=== PATIENT | female | born 1965 | race Caucasian/White ===

== ENCOUNTER 2020-07-13 21:12 | Emergency (ER) | payer BC ==
[2020-07-13] MEDS ORDERED: MORPHINE SULFATE 2 MG/ML SYRINGE IM STA (21:23)
--- NOTE | 2020-07-13 21:48 | XR ---
EXAMINATION TYPE: XR ankle complete RT DATE OF EXAM: 07/13/2020 COMPARISON: NONE HISTORY: Injury. Pain. TECHNIQUE: 3 views FINDINGS: There is posterior dislocation of the talus. There is oblique fracture distal fibula and tr ansverse fracture through the medial malleolus. There is probably a chip fracture of the posterior ma lleolus. IMPRESSION: Posterior fracture dislocation of the right ankle.
[2020-07-13] MEDS ORDERED: ETOMIDATE 2 MG/ML 10 ML VIAL IVP STA (22:09)
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
--- NOTE | 2020-07-13 23:29 | XR ---
EXAMINATION TYPE: XR ankle complete RT DATE OF EXAM: 07/13/2020 COMPARISON: Today HISTORY: Post reduction TECHNIQUE: 2 views FINDINGS: There is anatomic reduction of the talus. There is bimalleolar fracture of the ankle. There is 5 mm lateral displacement of the talus on the frontal view. There is probably a 2 x 1 cm chip fra cture of the posterior malleolus also. IMPRESSION: Satisfactory reduction of the posterior trimalleolar fracture dislocation.
[2020-07-13 23:37] VITALS: RESP 16
[2020-07-13 23:49] VITALS: PULSE 97
[2020-07-14] MEDS ORDERED: ACET/COD 300 MG/30 MG STARTER PACK 6 TAB BTL PO STA (00:11)
[2020-07-14 00:48] VITALS: BP 122/76; TEMP 97.8
== END 2020-07-14 00:20 | disposition home or self-care (01) ==
LOC: EC 21:12
DX: S82.841A Displaced bimalleolar fracture of right lower leg, initial encounter for closed fracture (principal); S82.401A Unspecified fracture of shaft of right fibula, initial encounter for closed fracture; Z88.0 Allergy status to penicillin; V87.8XXA Person injured in other specified noncollision transport accidents involving motor vehicle (traffic), initial encounter; Y93.55 Activity, bike riding; Y92.89 Other specified places as the place of occurrence of the external cause
CPT/HCPCS: 99284; 27810; 99152; 73610; 96374; 96372; J2270; 99285

== ENCOUNTER → 2023-04-30 | Outpatient (CLI) | payer BC ==
--- NOTE | 2023-05-02 07:52 | MM ---
Reason for Exam: Screening (asymptomatic). Patient History: Menarche at age 17. First Full-Term at age 30. Postmenopausal. Paternal aunt had breast cancer at or over age 50. Risk Values: Marilee 5 year model risk: 1.2%. NCI Lifetime model risk: 8.1%. Prior Study Comparison: No prior studies available for comparison. Tissue Density: The breast tissue is heterogeneously dense. This may lower the sensitivity of mammography. Findings: Analyzed By CAD. There is no suspicious group of microcalcifications or suspicious mass in either breast. Overall Assessment: Negative, BI-RAD 1 Management: Screening Mammogram of both breasts in 1 year. A clinical breast exam by your physician is recommended on an annual basis and results should be correlated with mammographic findings. Electronically signed and approved by: Bryn Peterson D.O.
== END | disposition home or self-care (01) ==
LOC: RADMAMWWP 12:54
PROVIDERS: ATTEND Family Medicine
DX: Z12.31 Encounter for screening mammogram for malignant neoplasm of breast (principal); Z78.0 Asymptomatic menopausal state; Z80.3 Family history of malignant neoplasm of breast
CPT/HCPCS: 77063; 77067